=== PATIENT | male | born 1945 | race Caucasian/White ===

== ENCOUNTER 2016-07-02 07:00 | Day surgery (SDC) | payer MEDICARE ==
[~2016-07-02] VITALS: Ht 175.3 cm; Wt 119.5 kg
[~2016-07-02 07:00] MED LIST: ACCUPRIL10 MG; ACCUPRIL10 MG PO; ACETAMINOPHEN500 M1 PO; AGGRENOX 200/251 CAP; AGGRENOX 200/251 CAP PO; CARDURA8 MG; CARDURA8 MG PO; COLACE100 MG PO; COMBIVENT RESPIM4 GM INH; COREG25 MG; COREG25 MG PO; ELIQUIS2.5 MG PO; FIBER LAXATIVE500 MG; FIBER LAXATIVE500 MG PO; HYDROCODONE-APA1 TAB; K-DUR20 MEQ PO; LANOXIN250 MCG PO; LASIX20 MG; LASIX40 MG PO; LUMIGAN 0.03 %2.5 ML; NITROSTAT0.4 MG; OXYCODONE HCL5 MG PO; PRILOSEC20 MG; PRILOSEC20 MG PO; ROBAXIN-750750 MG PO; ROBAXIN500 MG; SENOKOT-S TABLE1 TAB PO; STOOL SOFTENER240 MG; TYLENOL 325 MG325 MG
[2016-07-02] MEDS ORDERED: RYTHMOL SR225 MG PO (07:04)
[2016-07-02 07:09] VITALS: BP 152/90; Ht 175.3 cm; Wt 119.5 kg
[2016-07-02 08:28] LABS: BASOPHILS 0.3 % (0.0-2.0); EOSINOPHILS 1.9 % (0-7); HEMATOCRIT 37.2 % (42.0-54.0); IMMATURE GRANULOCYTES 0.3 % (0-5); LYMPHOCYTES 18.5 % (15-50); MCHC 32.3 g/dL (31.0-37.0); MEAN PLATELET VOLUME 10.5 fL (7.4-10.4); MONOCYTES 11.4 % (2-11); NEUTROPHILS 67.6 % (40-80); WBC 7.4 10x3/uL (4.8-10.8)
[2016-07-02 08:30] LABS: PLATELET COUNT 205 10x3/uL (130-400)
[2016-07-02 08:43] LABS: ANION GAP 7.7 mmol/L (8-16); CARBON DIOXIDE 34.1 mmol/L (21.0-32.0); CREATININE - SERUM 1.9 mg/dL (0.6-1.3); POTASSIUM - SERUM 4.8 mmol/L (3.5-5.1)
[2016-07-02] MEDS ORDERED: OMEPRAZOLE40 MG PO (10:15)
--- NOTE | 2016-07-02 15:24 | NUR ---
1015 IV DC'ED WTIH CATH INTACT. 500ML LTC. PT DRESSING. Tory BALLARD R.N.
--- NOTE | 2016-07-02 15:24 | NUR ---
1035 DRESSED. AWAKE & ALERT. D/C INSTRUCTIONS REVIEWED WITH PT & . INFORMATIONS INCLUDING RX: OMEPRAZOLE, MED REC., SHEET LISTING NASAIDS TO AVOID, REFLUX ESOPHAGITIS/HIATEL HERNIA DIET, REFLUX ESOPHAGITIS INFORMATION SHEETS,& D/C INSTRUCTIONS SHEET POST ENDOSCOPIC PREOCEDURES. INFORMATION DISCUSSED WITH QUESTIONS ANSWERED. TO PRIVATE CAR VIA WHEELCHAIR BY VOLUNTEER. HOME WITH MRS. BLISSDarian BALLARD R.N.
--- NOTE | 2016-07-03 09:05 | OP ---
PATIENT NAME: ANN MARIE BLISS MEDICAL RECORD: [id number] :49 LOCATION:D.[facility] ADMISSION DATE: SURGEON: BEN MUNROE DO DATE OF OPERATION: 07/02/2016 PROCEDURE: EGD. SCOPE: Olympus video gastroscope. MEDICATIONS: Propofol 150 mg IV per anesthesia. INDICATIONS FOR PROCEDURE: Gastroesophageal reflux disease and unspecified dysphagia. FINDINGS: Informed consent was given. The patient was made comfortable with the above medication. After reaching an adequate level of sedation by slow IV push, the patient was placed on his left side. The endoscope was then advanced under direct visualization through the mouth to the second portion of the duodenum. The esophagus appeared normal in its entirety, including the GE junction. The scope was advanced into the stomach and retroflexed to view the cardia, where a small sliding hiatal hernia was present. Scope was advanced throughout the body of the stomach and down to the antrum and prepyloric region where there was some evidence of gastritis, characterized by granularity and erythema in the prepyloric and antral regions. Random biopsies were taken to submit for histology and to rule out H. pylori. In the distal stomach, there was also a single ulcer which was superficial and clean base. Two biopsies were taken of this site and submitted for histology. The scope was advanced into the duodenum where the bulb, first portion, and second portion of the duodenum appeared normal. Scope was withdrawn from the patient. The patient tolerated the procedure well and there were no complications. ESTIMATED BLOOD LOSS: Less than 3 cc. IMPRESSIONS: 1. Gastritis of the antrum and prepyloric region, biopsies taken. 2. Single gastric ulcer in the prepyloric region, biopsies taken. 3. Small sliding hiatal hernia. PLAN AND RECOMMENDATIONS: 1. Discharge home when recovery parameters are met. 2. Continue current diet and reflux precautions. 3. Continue current medications. 4. Consider increasing omeprazole 40 mg daily for 30 days and reducing back to 20 mg regarding the ulceration. 5. Upon discussion with the patient, his dysphagia seems to be controlled with increased awareness and eating slowly. There were no obvious strictures or narrowings within his esophagus on today's examination. If the dysphagia continues, I would recommend a barium esophagram and/or a modified barium swallow based on the specific symptoms at that time. TRANSINT:[id number] Voice Confirmation ID: [id number] DOCUMENT ID: [id number] OPERATIVE REPORT [id number] ANN MARIE BLISS NATHAN A DO at 0905 CC: [id number] DICTATION DATE: 07/02/16900 COMPLAINT SPECIALIST: 07/02/16 1216 [facility] 07/02/16 [place] [id number] [place] [id number]
== END 2016-07-02 10:35 | disposition home or self-care (01) ==
LOC: D.OPS 07:00
PROVIDERS: Anesthesiology
DX: K21.9 Gastro-esophageal reflux disease without esophagitis (principal); R13.10 Dysphagia, unspecified; K29.70 Gastritis, unspecified, without bleeding; K25.9 Gastric ulcer, unspecified as acute or chronic, without hemorrhage or perforation; K44.9 Diaphragmatic hernia without obstruction or gangrene

== ENCOUNTER 2016-07-04 11:15 | Day surgery (SDC) | payer MEDICARE ==
[~2016-07-04] VITALS: Ht 175.3 cm; Wt 119.5 kg
[~2016-07-04 11:15] MED LIST changes: +OMEPRAZOLE40 MG PO; +RYTHMOL SR225 MG PO
[2016-07-04 12:25] LABS: BASOPHILS 0.2 % (0.0-2.0); EOSINOPHILS 1.3 % (0-7); HEMATOCRIT 35.3 % (42.0-54.0); HEMOGLOBIN 11.4 g/dL (13.5-17.5); IMMATURE GRANULOCYTES 0.2 % (0-5); LYMPHOCYTES 20.6 % (15-50); MCH 30.3 pg (26.0-34.0); MCHC 32.3 g/dL (31.0-37.0); MCV 93.9 fL (80.0-100.0); MEAN PLATELET VOLUME 9.7 fL (7.4-10.4); MONOCYTES 9.3 % (2-11); NEUTROPHILS 68.4 % (40-80); PLATELET COUNT 169 10x3/uL (130-400); RBC 3.76 10x6/uL (4.20-6.10); RDW 14.6 % (11.5-14.5); WBC 6.2 10x3/uL (4.8-10.8)
[2016-07-04 12:37] LABS: CALCIUM 9.2 mg/dL (8.5-10.1); CARBON DIOXIDE 32.3 mmol/L (21.0-32.0); CREATININE - SERUM 0.5 mg/dL (0.6-1.3); GLUCOSE 90 mg/dL (74-106); UREA NITROGEN 17 mg/dL (7-18); eGFR NON AFRICAN AMERICAN > 90 mL/min (90-120)
[2016-07-04 12:38] LABS: APTT 29.7 SECONDS (22.8-39.4); INR 1.09 (0.85-1.17)
[2016-07-04 12:53] LABS: CALC OSMOLALITY 280 mosm/kg (275-300); CHLORIDE - SERUM 102 mmol/L (98-107); POTASSIUM - SERUM 4.6 mmol/L (3.5-5.1); SODIUM 140 mmol/L (136-145)
[2016-07-04 13:10] VITALS: BP 149/81; Ht 175.3 cm; Wt 119.5 kg
[2016-07-04] MEDS ORDERED: BENTYL10 MG PO (15:23)
--- NOTE | 2016-07-10 10:50 | OP ---
PATIENT NAME: ANN MARIE BLISS MEDICAL RECORD: [id number] :49 LOCATION:D.[facility] ADMISSION DATE: SURGEON: BEN MUNROE DO DATE OF OPERATION: 07/04/2016 PROCEDURE: Colonoscopy. SCOPE: Olympus video pediatric colonoscope. MEDICATIONS: Propofol 350 mg IV per anesthesia. INDICATIONS: History of colon polyps, abdominal pain in the lower abdomen, change in bowel habits. FINDINGS: Informed consent was given. The patient was made comfortable with the above medication. After reaching an adequate level of sedation by slow IV push, the patient was placed on his left side. A digital rectal examination was performed and was normal. The endoscope was then advanced under direct visualization through the rectum to the cecum, evidenced by the ileocecal valve, cecal folds and appendiceal orifice. The scope was then slowly withdrawn as mucosa was carefully examined. There were internal hemorrhoids visualized of mild severity upon retroflexion in the rectum. The remainder of the examination was otherwise normal without evidence of polyps, or other abnormalities. The patient has had a left-sided diverticulosis noted on past examinations. I did not specifically see any diverticuli on this exam, but that could be an etiology for his symptoms as well. Withdrawal time was 9 minutes. There were no complications of the procedure. IMPRESSION: Internal hemorrhoids, otherwise normal colonoscopy. PLAN AND RECOMMENDATIONS: 1. Discharge home when recovery parameters are met. 2. Continue high fiber diet. 3. Continue current medications. 4. Trial of Bentyl 10-20 mg p.o. b.i.d. p.r.n. abdominal pain. 5. Notify the clinic if symptoms do not improve with medication or worsened. 6. Follow up with primary care provider as previously scheduled. TRANSINT:[id number] Voice Confirmation ID: [id number] DOCUMENT ID: [id number] BEN MUNROE DO at 1050 CC: [id number] DICTATION DATE: 07/04/16 1503 CONTENT DEVELOPMENT MANAGER: 07/04/[address] [facility] 07/04/[address] [address]
== END 2016-07-04 16:00 | disposition home or self-care (01) ==
LOC: D.OPS 11:15
PROVIDERS: Anesthesiology
DX: R10.30 Lower abdominal pain, unspecified (principal); Z86.010 Personal history of colon polyps; R19.4 Change in bowel habit; K64.8 Other hemorrhoids; J45.909 Unspecified asthma, uncomplicated; I25.10 Atherosclerotic heart disease of native coronary artery without angina pectoris; I10 Essential (primary) hypertension; G47.30 Sleep apnea, unspecified; K44.9 Diaphragmatic hernia without obstruction or gangrene; E66.01 Morbid (severe) obesity due to excess calories; Z68.38 Body mass index [BMI] 38.0-38.9, adult

== ENCOUNTER 2017-02-04 10:34 | Outpatient (CLI) | payer MEDICARE ==
[~2017-02-04] VITALS: Ht 175.3 cm; Wt 113.6 kg
--- NOTE | ~2017-02-04 | HEMODYNAMI ---
PATIENT:ANN MARIE BLISS MEDICAL RECORD: [id number] : 49 LOCATION:D.[facility] ADMISSION DATE: 02/04/17 Generatedon:02/04/201714:49 Patient name: ANN MARIE BLISS Patient #: [id number] SSN: : 1945 Date of study: 02/04/2017 Page: Of Hemodynamic Procedure Report Patient Data Patient Demographics Procedure consent was obtained First Name: ANN MARIE Gender: Male Last Name: RUTHY : 1945 [facility] Initial: C Age: 71 year(s) Patient #: [id number] Race: Unknown Additional ID: [id number] Contact details Address: [address] [place] [address] [facility] State: [place] City: [place] Zip code: [address] Past Medical History Allergies Allergen Reaction Date Comments Reported Other allergy 02/04/2017 SULFA, BLUE DYE, CODEINE Admission Admission Data Admission Date: 02/04/2017 Admission Time: 10:34 Height (in.): 5.9 BSA: 0.38 (m2) Height (cm.): 14.99 BMI: 5049.34 (kg/m2) Weight (lbs.): 250 Weight (kg.): 113.4 Procedure Procedure Types Cath Procedure Diagnostic Procedure [facility] w/Coronaries Miscellaneous Procedures Moderate Sedation up to 15 minutes Procedure Description Procedure Date Procedure Date: 02/04/2017 Procedure Start Time: 14:36 Procedure End Time: 14:48 Procedure Staff Name Function Tom Rod MD Performing Physician Edith Russell RN Nurse Rosie Nicholson RT Monitor Grzegorz Garibay RT Monitor Brien Nova RT Scrub Procedure Data Cath Procedure Fluoroscopy Diagnostic fluoroscopy Total fluoroscopy Time: 1.3 time: 1.3 min min Diagnostic fluoroscopy Total fluoroscopy dose: 541 dose: 541 mGy mGy Contrast Material Contrast Material Type Amount (ml) Isovue 300 60 Entry Location Entry Primary Successful Side Size Upsize Upsize Entry Closure Succes sful Closure Location (Fr) 1 (Fr) 2 (Fr) Remarks Device Remarks Femoral Right 5 Fr Exoseal artery Estimated blood loss: 5 ml Diagnostic catheters Device Type Used For End Catheter Placement Cordis 5Fr JL 4.0 Procedure Catheter (MP) Cordis 5Fr 3DRC Catheter Procedure (MP) Cordis 5Fr Pigtail Procedure Catheter (MP) Procedure Complications No complications Procedure Medications Medication Administration Route Dosage 0.9% NaCl I.V. 100 ml/hr Oxygen NC 3 l/min Lidocaine 2% added to field 20 Heparin Flush Bag added to field 2 bags (1000units/500ml NS) Versed I.V. 0.5 mg Fentanyl I.V. 25 mcg Versed I.V. 0.5 mg Fentanyl I.V. 25 mcg Hemodynamics Rest BSA: 0.38 (m2) O2 Consumption: Estimated: 44.56 (ml/min) O2 Consumption indexed: Estimated:117.26 (ml/min/m) Heart Rate: 74 (bpm) Pressure Samples Time Site Value (mmHg) Purpose Heart Use Rate(bpm) 14:42 LV 154/14,17 Snapshot 65 14:43 AO 151/73(109) Pullback 66 14:43 LV 152/16,22 Pullback 66 Gradients Valve Time Site 1 Site 2 Mean SEP/DFP Peak To Heart Use (mmHg) (sec/min) Peak Rate (mmHg) (bpm) Aortic 14:43 LV AO 6 20 1 66 152/16,22 151/73(109) Calculations Valve P-P Mean Valve Index Valve Source Name Gradient Area Flow (cm2) Aortic 1 6 1 6 Snapshots Pre Cath Intra NCS Post Cath Vital Signs Time Heart Resp SPO2 etCO2 NIBP (mmHg) Rhythm Pain Sedation Rate (ipm) (%) (mmHg) Status Level (bpm) 14:26:18 86 28 97 28.8 164/101(131) NSR 0 (11) 10(A) , No pain 14:31:27 66 20 96 13.6 176/100(143) NSR 0 (11) 10(A) , No pain 14:36:40 72 21 97 18.9 171/98(134) NSR 0 (11) 10(A) , No pain 14:41:54 65 18 95 12.1 155/80(113) NSR 0 (11) 10(A) , No pain 14:47:03 63 21 95 15.9 152/83(106) NSR 0 (11) 10(A) , No pain Medications Time Medication Route Dose Verified Delivered Reason Notes Ef fectiveness by by 14:30:07 0.9% NaCl I.V. 100ml/hr Tom Sharma used for [facility] residential property tax appraiser 14:30:41 Oxygen NC 3 l/min Tom Sharma used for [facility] residential property tax appraiser 14:30:59 Lidocaine 2% added 20ml Tom Santos used for to vial [facility] procedure field MD DUNLAP 14:31:13 Heparin Flush added 2 bags Tom Santos used for Bag to [facility] procedure (1000units/500ml field MD DUNLAP NS) 14:34:14 Versed I.V. 0.5 mg Tom Donovanfany for [facility] RN sedation 14:34:26 Fentanyl I.V. 25 mcg Tom Sharma for [facility] RN sedation 14:38:13 Versed I.V. 0.5 mg Tom Donovanfany for [facility] RN sedation 14:38:22 Fentanyl I.V. 25 mcg Tom Sharma for [facility] RN sedation Procedure Log Time Note 13:57:27 Brien Nova RT(R) sent for patient. Start room use. 13:57:29 Time tracking: Regular hours 13:57:35 Plan of Care:Hemodynamics will remain stable., Cardiac rhythm will remain stable., Comfort level will be maintained., Respiratory function will remain adequate., Patient/ family verbilizes understanding of procedure., Procedure tolerated without complication., Recovers from procedure without complications.. 14:10:27 H&P Date Dictated: 01/28/2017 Within 30 days and on chart., H&P Addendum completed by physician on day of procedure. (MUST COMPLETE FOR ALL OUTPATIENTS). 14:16:00 Patient arrived from Pre/Post Procedure Room to CCL 1. Patient remains on bed/stretcher for procedure. 14:16:01 Warm blankets applied, and carlos hugger turned on for patient comfort. 14:16:02 Correct patient and procedure confirmed by team. 14:16:03 Signed procedure consent form obtained from patient. 14:16:05 ECG and BP/O2 sat monitors applied to patient. 14:24:52 Vital chart was started 14:25:07 Baseline sample Acquired. 14:25:12 Rhythm: sinus rhythm 14:25:13 Full Disclosure recording started 14:25:16 Pre-procedure instructions explained to patient. 14::17 Pre-op teaching completed and patient verbalized understanding. 14:25:20 Family in patients room. 14:25:22 Patient NPO since Midnight. 14:25:36 Is the patient allergic to Iodine/contrast media? No. 14:25:42 Is patient on blood thinner?No 14:28:02 Patient diabetic? No. 14:28:08 Previous problem with sedation/anesthesia? Yes ? 14:28:10 Snore? Yes 14:28:11 Sleep apnea? Yes 14:28:12 Deviated septum? No 14:28:13 Opens mouth fully? Yes 14:28:14 Sticks out tongue? Yes 14:28:18 Airway obstruction? Yes COPD 14:28:22 Dentures? Yes AT HOME 14:28:26 Pre procedure: right dorsailis pedis pulse 2+ Normal; easily identifiable; not easily obliterated 14:28:39 IV patent on arrival in left hand with 0.9% NaCl at [facility]. 14:28:46 Lab results completed and on chart. 14:28:50 Right groin area was prepped with chlora-prep and draped in sterile fashion 14:28:52 Alarms reviewed by R. N. 14:28:52 Sharps counted by scrub and verified by R.N. 14:28:54 --------ALL STOP TIME OUT------ 14:28:54 Final Timeout: patient, procedure, and site verified with staff and physician. All members of the team are in agreement. 14:28:56 Right groin site verified by team. 14:29:01 Physical assessment completed. ASA score P 2 - A patient with mild systemic disease as per Tom Rod MD. 14:29:06 Sedation plan: IV Moderate Sedation Versed, Fentanyl 14:30:07 0.9% NaCl 100ml/hr I.V. was administered by Edith Russell RN; used for procedure; 14:30:41 Oxygen 3 l/min NC was administered by Edith Russell RN; used for procedure; 14:30:57 Patient allergic to Other allergySULFA, BLUE DYE, CODEINE 14:30:59 Lidocaine 2% 20ml vial added to field was administered by Tom Rod MD; used for procedure; 14:31:13 Heparin Flush Bag (1000units/500ml NS) 2 bags added to field was administered by Tom Rod MD; used for procedure; 14:31:26 Use device set Femoral Dx 14:31:27 Acist Syringe opened to sterile field. 14:31:28 Bag Decanter opened to sterile field. 14:31:30 Acist Manifold opened to sterile field. 14:31:31 Acist Hand Control opened to sterile field. 14:31:32 Tegaderm 4 x 4 opened to sterile field. 14:31:33 Medline Cath Pack opened to sterile field. 14:31:34 Terumo 5Fr Dimmitt Sheath opened to sterile field. 14:31:34 St Romel 260cm J .035 wire opened to sterile field. 14:31:35 Diagnostic Infinity 5Fr Multipack catheter opened to sterile field. 14:33:42 Patient Height : 5.9 inches 14:33:51 Patient Weight : 250 lbs 14:34:14 Versed 0.5 mg I.V. was administered by Edith Russell RN; for sedation; 14:34:26 Fentanyl 25 mcg I.V. was administered by Edith Russell RN; for sedation; 14:35:36 Cook 18G 7cm Percutaneous Entry needle opened to sterile field. 14:36:54 Procedure started. 14:36:58 Local anesthetic to right femoral artery with Lidocaine 2% by Tom Rod MD.INITIAL ACCESS ONLY 14:38:13 Versed 0.5 mg I.V. was administered by Edith Russell RN; for sedation; 14:38:13 A 5 Fr sheath was inserted into the Right Femoral artery 14:38:22 Fentanyl 25 mcg I.V. was administered by Edith Russell RN; for sedation; 14:38:29 Zero performed for pressure channel P1 14:39:00 A Cordis 5Fr JL 4.0 Catheter (MP) was advanced over the wire and used for Procedure. 14:39:35 LCA angiography performed. 14:40:06 Catheter removed. 14:40:28 A Cordis 5Fr 3DRC Catheter (MP) was advanced over the wire and used for Procedure. 14:41:37 RCA angiography performed. 14:41:46 Catheter removed. 14:42:05 A Cordis 5Fr Pigtail Catheter (MP) was advanced over the wire and used for Procedure. 14:43:22 LV gram done using BORREGO 14:43:31 EF : 50 % 14:43:35 LV hemodynamics recorded. 14:43:39 Injector settings: Ml/sec: 10, Volume: 20, 14:43:57 Catheter removed. 14:44:14 Cordis 5Fr Exoseal opened to sterile field. 14:44:46 Sheath removed intact; hemostasis achieved with Exoseal to the Right Femoral artery. 14:44:49 Procedure ended.(Physican Out) 14:45:01 Fluoroscopy time 01.30 minutes. 14:45:05 Fluoroscopy dose: 541 mGy 14:45:05 Flurop Dose total: 541 14:45:08 Contrast amount:Isovue 300 60ml. 14:45:10 Sharps counted by scrub and verified by R.N. 14:45:15 Post-op/insertion site Right Femoral artery dressed using a 4 x 4 and Tegaderm. 14:45:20 Post right femoral artery:stable, soft, clean and dry 14:45:22 Post Procedure Pulses reassessed and unchanged 14:45:26 Post-procedure physical assessment completed. ASA score P 2 - A patient with mild systemic disease as per Tom Rod MD. 14:45:30 Post procedure rhythm: unchanged. 14:45:32 Estimated blood loss: 5 ml 14:45:33 Post procedure instruction explained to patient.Patient verbalizes understanding. 14:45:34 Patient needs reinforcement of post procedure teaching. 14:47:21 Procedure and supply charges have been captured, reviewed, submitted and are correct. 14:47:25 Procedure Complication : No complications 14:48:32 Vital chart was stopped 14:48:32 See physician's report for complete and final results. 14:48:34 Report given to Pre/Post Procedure Room. 14:48:38 Patient transfered to Pre/Post Procedure Room with Stretcher. 14:48:40 Procedure ended. 14:48:40 Full Disclosure recording stopped 14:48:56 End room use (Document Last) Device Usage Item Name Manufacture Quantity Catalog Hospital Part Current Minimal Lot# / Number Charge Number Stock Stock Serial# Code [facility] 1 23189 [id number] [id number] [id number] 20 Syringe [employer] Bag Decanter Microtek 1 2002S 766900 80121 [id number] 5 Medical Inc. Acist Acist 1 37030 367400 565331 461775 5 Manifold Medical Systems Inc Acist Hand Acist 1 73386 131827 643676 058132 5 Control [employer] Inc Tegaderm 4 x 3M 1 1626W 636020 039650 282335 5 4 Medline Cath Cardinal 1 [id number] 959666 52261 814265 5 Pack Health Terumo 5Fr Terumo 1 [id number] 364606 418888 348081 [address] Rom[address] St Romel 1 735331 842709 590751 050552 30 260cm J .035 wire Diagnostic Cardinal 1 [id number] 234059 51598 519066 30 Infinity 5Fr Health Multipack catheter Cook 18G 7cm Cook [facility] 1 [id number] 711790 97069 862627 5 Percutaneous Entry needle Cordis 5Fr Cardinal 1 619164 5 JL 4.0 Health Catheter (MP) Cordis 5Fr Cardinal 1 810903 5 3DRC Health Catheter (MP) Cordis 5Fr Cardinal 1 [id number] 5 Pigtail Health Catheter (MP) Cordis 5Fr Cardinal 1 EX500 332220 936706 239048 10 [facility] Signature Audit Stokes Stage Time Signature Unsigned Intra-Procedure 02/04/2017 Rosie Nicholson 2:49:13 PM RT(R) Signatures Monitor : Rosie Nicholson Signature : RT Date : Time : Monitor : Grzegorz Garibay RT Signature : Date : Time : [place] [id number] [place] [address]
[~2017-02-04 10:34] MED LIST changes: +BENTYL10 MG PO
[2017-02-04] MEDS ORDERED: BIMATOPROST2.5 ML EACH EYE (10:53)
[2017-02-04] MEDS ORDERED: AGGRENOX 200/251 CAP PO ×2 (10:54)
[2017-02-04] MEDS ORDERED: CHILDREN'S BE12.5 MG PO (10:55)
[2017-02-04] MEDS ORDERED: COMBIVENT RESPIM4 GM INH (10:56)
[2017-02-04] MEDS ORDERED: BAYER CHEWABLE81 MG PO (10:56)
[2017-02-04 11:00] VITALS: BP 176/95; Ht 175.3 cm; Wt 113.6 kg
[2017-02-04 11:10] LABS: BASOPHILS 0.1 % (0-2); EOSINOPHILS 1.9 % (0-7); HEMOGLOBIN 12.7 g/dL (13.5-17.5); IMMATURE GRANULOCYTES 0.1 % (0-5); LYMPHOCYTES 22.6 % (15-50); MCH 30.6 pg (26.0-34.0); MCHC 32.6 g/dL (31.0-37.0); MEAN PLATELET VOLUME 10.8 fL (7.4-10.4); MONOCYTES 10.4 % (2-11); NEUTROPHILS 64.9 % (40-80); PLATELET COUNT 183 10x3/uL (130-400); RBC 4.15 10x6/uL (4.20-6.10); RDW 13.9 % (11.5-14.5); WBC 6.7 10x3/uL (4.8-10.8)
[2017-02-04 11:18] LABS: ANION GAP 11.6 mmol/L (8-16); CALCIUM 8.6 mg/dL (8.5-10.1); CARBON DIOXIDE 29.9 mmol/L (21.0-32.0); CREATININE - SERUM 1.8 mg/dL (0.6-1.3); POTASSIUM - SERUM 4.5 mmol/L (3.5-5.1)
--- NOTE | 2017-02-04 15:26 | NUR ---
1455 RECEIVED PT FROM RETANNER. PT DENIES ANY C/O CHEST PAIN OR NAUSEA. IV PATENT AND INFUSING PER ORDERS. VSS. NSR PER MONITOR. DRESSING TO RIGHT GROIN IS CDI, AREA IS SOFT AND NONTENDER. PEDAL PULSES PALPABLE. CALL LIGHT IN REACH, WILL CONTINUE TO MONITOR.
--- NOTE | 2017-02-04 15:28 | NUR ---
1515 DRESSING RIGHT GROIN IS CDI, AREA SOFT AND NONTENDER. PO FLUIDS SERVED. NSR WITH RATE OF 66, DENIES ANY C/O CHEST PAIN. BP 146/84
--- NOTE | 2017-02-04 15:45 | NUR ---
1545 DRESSING REMAINS CDI, AREA SOFT AND NONTENDER. PEDAL PULSES PALPABLE. DESIREE PO FLUIDS WITH NO C/O NAUSEA. AT BEDSIDE, CALL LIGHT IN REACH.
--- NOTE | 2017-02-04 16:15 | NUR ---
1615 PT DENIES ANY C/O. DRESSING CDI, VSS. AT BEDSIDE
--- NOTE | 2017-02-04 17:00 | NUR ---
1700 PT HAS DESIREE SANDWICH WITH NO C/O NAUSEA. IV DC'D WITH CATH INTACT. PT DRESSING FOR DC TO HOME.
--- NOTE | 2017-02-04 17:11 | NUR ---
1645 SANDWICH SERVED, HOB ELEVATED 45 DEGREES. DRESSING CDI, PT DENIES ANY C/O.
--- NOTE | 2017-02-04 17:47 | NUR ---
1715 DC INSTRUCTIONS REVIEWED WITH PT AND WHO VERBALIZE UNDERSTANDING. PT HAS AMBULATED TO THE BATHROOM AND VOIDED QS. PT ESCORTED TO PRIVATE AUTO VIA WC BY NURSE WITH DRIVING HIM HOME.
--- NOTE | 2017-02-07 13:50 | OP ---
PATIENT NAME: ANN MARIE BLISS MEDICAL RECORD: [id number] :49 LOCATION:D.CAT ADMISSION DATE: SURGEON: ARI MCMAHON MD DATE OF OPERATION: 02/04/2017 PROCEDURE: Left heart catheterization, selective coronary angiography, right femoral approach. CATHETERS: A 5-Hungarian sheath, 5/4 left and right Ignacio, 5/4 pig. The procedure was well tolerated and the patient returned to [place]. Sheath removed. ExoSeal device placed. FINDINGS: Left ventriculography in 30-degree BORREGO view shows mild global hypokinesis. LV function in the lower limits of normal to mildly reduced. Estimated EF 45% to 50%. CORONARY ANATOMY: LEFT MAIN: Left main is free of disease. LAD: Free of disease in the diagonal system. CIRCUMFLEX: Free of disease in the marginal system. RIGHT CORONARY ARTERY: Dominant artery, gives rise to PDA, free of disease. IMPRESSION: Minimal reduction in LV function to lower limits of normal. No evidence of obstructive coronary artery disease. TRANSINT:[id number] Voice Confirmation ID: [id number] DOCUMENT ID: [id number] ARI MCMAHON MD at 1350 CC: [id number] DICTATION DATE: 02/04/17 1449 TREE MARKER: 02/04/17 1720 DEP CLI 02/04/17 [place] [id number] [place] [address]
== END 2017-02-04 17:15 | disposition home or self-care (01) ==
LOC: D.CATH 10:34
PROVIDERS: Internal Medicine Interventional Cardiology
DX: I42.9 Cardiomyopathy, unspecified (principal); I10 Essential (primary) hypertension; E78.5 Hyperlipidemia, unspecified; E11.9 Type 2 diabetes mellitus without complications; R06.02 Shortness of breath; Z01.812 Encounter for preprocedural laboratory examination

== ENCOUNTER → 2018-07-28 08:32 | Outpatient (CLI) | payer MEDICARE ==
[2017-02-04 11:00] VITALS: BMI 37.0
--- NOTE | ~2018-07-28 | EC ---
PATIENT:ANN MARIE BLISS DATE OF SERVICE: 07/28/18 SEX: M MEDICAL RECORD: [id number] DATE OF : [birth year] LOCATION:D.[facility] AGE OF PATIENT: 73 ADMISSION DATE: 07/28/18 REFERRING PHYSICIAN: INTERPRETING PHYSICIAN: ARI MCMAHON MD ECHOCARDIOGRAM REPORT ECHO CHARGES 4 ECHO COMPLETE Date: 07/28/18 CLINICAL DIAGNOSIS: CARDIOMYOPATHY/SOB HX OF SVT/HTN ECHOCARDIOGRAPHIC MEASUREMENTS (adult normal given) AC root (d.<3.7cm) 3.5 cm LV Septum d (<1.2 cm> 2.1 cm Valve Excursion 1.6 cm LV Septum (systole) 2.2 cm Left Atria (s.<4.0cm> 4.1 cm LVPW d(<1.2cm) 1.9 cm RV (d.<2.3cm) 3.9 cm LVPW (sytole) 2.0 cm LV diastole(<5.6CM) 4.8 cm MV E-F(>70mm/sec) cm LV systole 3.0 cm LVOT Diameter 2.1 cm MV exc.(>10mm) cm Est.ejection fraction (50-75%) % DOPPLER: LVIT cm/sec A 80.0 cm/sec E 52.0 cm/sec LA cm/sec RVSP 23 mmHg LVOT 92 cm/sec AOP1/2T m/s Asc. Ao 136 cm/sec RVOT 75 cm/sec RA cm/sec PA 115 cm/sec AV Gradient Peak 7.36 mmHg AV Mean 3.54 mmHg AV Area 2.5 cm MV Gradient Peak 3.96 mmHg MV Mean 1.49 mmHg MV Area cm COMMENTS: Plant Utility Person: 2 CLYDE CASILLAS Engraver Copperplate: 3 Dr. Rod TAPE# PACS Pericardial Effusion N DATE OF SERVICE: Adequate 2D, color flow, spectral Doppler, and M-Mode. LVH is present. LV internal dimensions are normal. Wall motion is normal. EF is greater than 55%. Aortic valve is sclerotic without evidence of stenosis by Doppler interrogation. Left atrium is upper limits of normal, mildly dilated at 4.1 cm. Mitral valve shows no prolapse. Mild MR. Right-sided chambers grossly normal. Trace TR. TRANSINT:[id number] Voice Confirmation ID: [id number] DOCUMENT ID: [id number] ECHOCARDIOGRAM REPORT [id number] ANN MARIE BLISS GREGORY A MD CC: [id number] DICTATION DATE: 07/29/18 1310 SHOPPER: 07/29/18 1339 DEP CLI 07/28/18 [place] [id number] [place] [id number]
[~2018-07-28 08:32] MED LIST changes: +BAYER CHEWABLE81 MG PO; +BIMATOPROST2.5 ML EACH EYE; +CHILDREN'S BE12.5 MG PO
== END | disposition home or self-care (01) ==
LOC: D.HCCARDIO 08:32
PROVIDERS: ATTEND Internal Medicine Interventional Cardiology
DX: I42.9 Cardiomyopathy, unspecified (principal)